=== PATIENT | female | born 1955 | race Caucasian/White ===

== ENCOUNTER → 2018-07-03 09:44 | Outpatient (CLI) | payer MEDICARE, OTHER, SELFPAY ==
--- NOTE | 2018-07-03 | DI.MG.S_ITS ---
BILATERAL DIGITAL SCREENING MAMMOGRAM 3D/2D WITH CAD: 07/03/2018 CLINICAL: Routine screening. Comparison is made to exams dated: 06/19/2017 mammogram, 06/18/2016 mammogram, 06/16/2015 mammogram, 06/14/2014 mammogram, and 08/03/2014 mammogram - [facility]. The tissue of both breasts is heterogeneously dense. This may lower the sensitivity of mammography. Current study was also evaluated with a Computer Aided Detection (CAD) system. There are benign post operative findings in the left breast. There is a mole marker on the right breast. There are mole markers on the left breast. No significant masses, calcifications, or other findings are seen in either breast. There has been no significant interval change. IMPRESSION: There is no mammographic evidence of malignancy. A 1 year screening mammogram is recommended. This exam was interpreted at Station ID: [id number]. NOTE: For mammograms, a report in lay terms will be sent to the patient. Approximately 15% of breast malignancies will not be visualized mammographically. In the management of a palpable breast mass, a negative mammogram must not discourage biopsy of a clinically suspicious lesion. Electronically Signed By: Marlon moreau/ange:07/03/2018 13:26:32 letter sent: Normal Exam ACR BI-RADS Category 2: Benign Finding(s) 3342F
== END ==
PROVIDERS: Family Provider Internal Medicine; PCP Internal Medicine; Visit Provider Internal Medicine
DX: Z12.31 Encounter for screening mammogram for malignant neoplasm of breast (principal); M85.852 Other specified disorders of bone density and structure, left thigh; Z78.0 Asymptomatic menopausal state
CPT/HCPCS: 77063; 77067; 77080

== ENCOUNTER → 2019-07-06 08:37 | Outpatient (CLI) | payer MEDICARE, OTHER, SELFPAY ==
--- NOTE | 2019-07-06 | DI.US.S_ITS ---
PROCEDURE: US PELVIC COMPLETE INDICATIONS: RIGHT UPPER AND LOWER QUADRANT PAIN TECHNIQUE: Real-time scanning was performed of the pelvic organs, with image documentation. Additional endovaginal scanning was necessary due to incomplete visualization of the adnexal and endometrial structures by transabdominal scanning. COMPARISON: None. FINDINGS: Transabdominal scanning: Limited scanning through the kidneys shows no hydronephrosis. No pathologic free abdominal or pelvic fluid. Endovaginal scanning: Uterus: The uterus measures 4.6 x 2.5 x 3.5 cm. The endometrium measures 13 mm in diameter and has an echogenic, cystic appearance. Ovaries: The ovaries are nonvisualized. IMPRESSION: Echogenic, thickened, cystic appearance of the endometrium which is abnormal in a postmenopausal patient. Endometrial biopsy recommended to exclude neoplasm. Dictated by: Zainab Fan M.D. on 07/06/2019 at 11:47 Approved by: Zainab Fan M.D. on 07/06/2019 at 11:49
--- NOTE | 2019-07-06 | DI.US.S_ITS ---
PROCEDURE: US ABDOMEN COMPLETE INDICATIONS: RIGHT UPPER AND LOWER QUADRANT PAIN TECHNIQUE: Real-time scanning was performed of the abdominal and retroperitoneal organs, with image documentation. COMPARISON: None. FINDINGS: Liver: Increased echogenicity suggests probable hepatic steatosis. Normal size. No masses. Gallbladder: Multiple mobile stones. No gallbladder wall thickening or pain on examination. No fluid around the gallbladder. Biliary ducts: Upper limits of normal extrahepatic duct, measuring 7 mm at the level of the common hepatic duct and 6 mm at the level of the common bile duct. Nondilated intrahepatic ducts. Pancreas: Visualized portions of the pancreas are sonographically normal. Spleen: Spleen is normal in size and homogeneous in echotexture. Kidneys: Kidneys are normal in size and echotexture. Right kidney measures 10.0 cm long; left kidney measures 10.7 cm long. No hydronephrosis or nephrolithiasis. No solid masses. Aorta: Visualized aorta is normal in caliber at less than 3 cm. Iliacs: Proximal common iliac arteries are normal in caliber at less than 2.5 cm. IVC: Intrahepatic inferior vena cava is patent. Miscellaneous: No free abdominal fluid. IMPRESSION: 1. Cholelithiasis. 2. Mildly prominent extrahepatic bile ducts. 3. Probable fatty change in the liver. Dictated by: Mazin Oconnell M.D. on 07/06/2019 at 10:51 Approved by: Mazin Oconnell M.D. on 07/06/2019 at 10:54
== END ==
PROVIDERS: Family Provider Internal Medicine; PCP Internal Medicine; Referring Provider Internal Medicine; Visit Provider Internal Medicine
DX: R10.11 Right upper quadrant pain (principal); R10.31 Right lower quadrant pain; K80.20 Calculus of gallbladder without cholecystitis without obstruction; K83.8 Other specified diseases of biliary tract; R93.89 Abnormal findings on diagnostic imaging of other specified body structures
CPT/HCPCS: 76700; 76830; 76856

== ENCOUNTER → 2019-11-03 10:30 | Outpatient (CLI) | payer MEDICARE, OTHER, SELFPAY ==
[2019-11-04 09:33] LABS: COVID19 Sendout Not Detected (Not Detect)
== END ==
PROVIDERS: Family Provider Internal Medicine; PCP Internal Medicine; Visit Provider Nurse Practitioner
DX: Z11.59 Encounter for screening for other viral diseases (principal)
CPT/HCPCS: 87635

== ENCOUNTER 2019-11-06 13:30 | Day surgery (SDC) | payer MEDICARE, OTHER, SELFPAY ==
--- NOTE | 2019-11-06 11:47 | P.HP_ITS ---
History of Present Illness History of Present Illness Date Patient Seen: 11/06/19 Chief complaint: SCREENING COLONOSCOPY Narrative: 64 year old female comes in today for consideration of a screening colonoscopy. Has had 4-5 lifetime colonoscopies, all normal. Last colonoscopy in 2013. Mother of colon cancer. There have been no lower GI symptoms suggesting disease such as change in bowel habits, bleeding, abdominal pain or anemia. Overall health issues have been stable, including no major cardiac events for at least 6 weeks. 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 Patient History Surgical History (Updated 07/02/17 @ 06:33 by DEISI Ordonez) History of bilateral salpingo-oophorectomy (BSO) Status post appendectomy Status post breast biopsy Status post tonsillectomy and adenoidectomy Family & Social History Family History (Updated 07/20/14 @ 00:00 by Conversion Provider) Father Heart disease Stroke Mother Cancer Diabetes mellitus Hypertension High cholesterol Melanoma Meds Home Medications and Allergies Home Medications Medication Instructions Recorded Confirmed Type multivitamin [Multiple Vitamins] 1 tab PO QDAY #0 06/13/16 11/06/19 History lovastatin 20 mg PO HS #90 tab 06/17/17 11/06/19 Rx omeprazole 20 mg PO DAILY 11/06/19 11/06/19 History propranolol 20 mg PO BID 11/06/19 11/06/19 History sumatriptan succinate 100 mg PO Q1H PRN 11/06/19 11/06/19 History Allergies Allergy/AdvReac Type Severity Reaction Status Date / Time No Known Drug Allergies Allergy Verified 11/06/19 14:16 Review of Systems Review of Systems ROS: Yes All systems reviewed with the patient and are negative except as otherwise documented Exam Narrative Exam Narrative: GENERAL: Alert and oriented, appearing stated age and in no acute distress. HEENT: Head normocephalic/atraumatic. Pupils equal, round, and reactive to light and accomodation. Extraocular muscles intact. Tympanic membranes clear. Nasal mucosa moist, septum midline. Oral mucosa moist, no lesions. Neck soft and supple, no lymphadenopathy. LUNGS: Clear to ausculation bilaterally, no wheezes, rhonchi or rales. CV: Normal S1 and S2 with regular rate and rhythm, no audible murmurs, rubs or gallops. ABDOMEN: Soft, non-tender, non-distended, no organomegaly. Positive bowel sounds. EXTREMITIES: No clubbing, cyanosis, or edema. NEURO: Cranial nerves II through XII grossly intact, no focal deficits. PSYCH: Alert and oriented x 3. SKIN: No concerning lesions. Assessment & Plan Assessment & Plan narrative: 1. Family history of colon cancer 2. Screening for colon cancer Plan for colonoscopy. The nature and character of the procedure as well as anticipated results were discussed. The possibility of not completing the procedure was also discussed. Possible complications including aspiration pneumonia, bleeding, perforation and reaction to medications either for sedation or preparation and missed lesions were discussed. Questions were answered and proceeding to the colonoscopy was elected. Informed consent signed. I sincerely appreciate the referral allowing me to participate in this patient's care. Please contact me with any questions or concerns.
--- NOTE | 2019-11-06 11:53 | PM.OP.ENDO ---
Operative Date/Time/Diagnoses Date of procedure: 11/06/19 Procedure Notes SCOAP/Timeout: 3:05 p.m. Procedure in detail: ENDOSCOPIST: Isidra Lawrence MD Sedation RN: Magalis Escobar RN Sedation start time: 3:06 p.m. Sedation end time: 3:27 p.m. PROCEDURE: Colonoscopy INDICATIONS: 1. Family history of colon cancer 2. Screening for colon cancer MEDICATION: Levsin 0.125 mg sublingual, incremental doses of Versed and fentanyl until appropriate level sedation achieved. ASA CLASS: 2 CECAL WITHDRAWAL TIME: 10 minutes COMPLICATIONS: None. EXTENT OF PROCEDURE: Cecum. QUALITY OF PREP: Good with portions of liquid stool. PROCEDURE: Prior to insertion of the colonoscope, a digital rectal examination was accomplished with circumferential palpation of the distal rectal mucosa without significant findings being noted. The high-definition pediatric colonoscope was passed into the rectum in the usual fashion and advanced over to the cecum without difficulty. The ileocecal valve, appendiceal stoma, and medial wall all could be inspected and no abnormalities were seen. ASCENDING COLON: As the colonoscope was withdrawn, care was taken to expose and inspect the haustral folds and no abnormalities were seen. HEPATIC FLEXURE: Normal, no polyps, diverticula or other abnormalities. TRANSVERSE COLON: Normal, no polyps, diverticula or other abnormalities. DESCENDING COLON: Normal, no polyps, diverticula or other abnormalities. SIGMOID COLON: Normal, no polyps, diverticula or other abnormalities. RECTUM: Normal. J maneuver was produced. There was no significant perianal disease. The J maneuver was broken. The remainder of the rectum was inspected and there was [] no external hemorrhoid disease. The scope was withdrawn. IMPRESSION: 1. Normal colonoscopy PLAN: 1. Secondary to family history, repeat colonoscopy in 5 years. The possibility of a missed lesion including a malignancy has been discussed with the patient previously. Potential alarm symptoms have been discussed and should be reported immediately.
[2019-11-06] MEDS: LACTATED RINGERS 1,000 ML 200 ML IV (14:14)
[2019-11-06] MEDS: HYOSCYAMINE 0.125 MG TABLET PO (14:14)
[2019-11-06 14:19] VITALS: BP 115/73; PULSE 84; RESP 16; TEMP 36.4; O2SAT 100; BMI 23.6
[2019-11-06] MEDS: fentaNYL 250 MCG/5 ML INJ IV ×2 (15:06→15:14)
[2019-11-06] MEDS: MIDAZOLAM 5 MG/5 ML VIAL IV (15:06)
--- NOTE | 2019-11-06 15:13 | SUR.OPER ---
BP monitor no functional at start of procedure
[2019-11-06 15:31] VITALS: BP 115/85; PULSE 76; RESP 16; TEMP 35.9; O2SAT 97
[2019-11-06 15:35] VITALS: BP 115/85; PULSE 83; RESP 16; TEMP 35.9; O2SAT 97
[2019-11-06 15:37] VITALS: BP 113/69; PULSE 74; RESP 16; O2SAT 98
[2019-11-06 15:42] VITALS: BP 107/62; PULSE 82; RESP 16; O2SAT 99
[2019-11-06 15:46] VITALS: BP 106/69; PULSE 69; RESP 18; TEMP 36.1; O2SAT 100
--- NOTE | 2019-11-06 16:02 | SUR.PHASEII ---
Pt is awake and alert. denies any complaints. pt is drinking cranberry juice.
--- NOTE | 2019-11-06 16:03 | SUR.PHASEII ---
Denies any complaints. states she is ready to go.
== END 2019-11-06 16:09 | disposition home or self-care (01) ==
PROVIDERS: Family Provider Internal Medicine; PCP Internal Medicine; Referring Provider Internal Medicine; Visit Provider Student in an Organized Health Care Education/Training Program
PROC: 0DJD8ZZ Inspection of Lower Intestinal Tract, Via Natural or Artificial Opening Endoscopic (ICD-10-PCS; CPT 45378; principal; 2019-11-06 15:15)
DX: Z12.11 Encounter for screening for malignant neoplasm of colon (principal); Z80.0 Family history of malignant neoplasm of digestive organs
CPT/HCPCS: G0105; J2250; J3010

== ENCOUNTER 2019-11-09 12:10 | Emergency (ER) | payer MEDICARE, OTHER, SELFPAY ==
--- NOTE | 2019-11-09 12:26 | ED_ITS ---
HPI - Extremity Injury (Lower) General Chief Complaint: Fall Stated Complaint: fell off short ladder, L santana pain Time Seen by Provider: 11/09/19 12:24 Source: patient and EMS Mode of arrival: EMS Limitations: no limitations History of Present Illness HPI Narrative: Patient is a 64-year-old female who presents after a fall from a short ladder. She said she was going up on the step stool when she fell injuring her left knee and leg. She has no other injury she has not had her head. Her shins seems to hurt the worst she is able to bend her knee, but it does hurt. She has no hip pain. Not on anticoagulation. Related Data Home Medications Medication Instructions Recorded Confirmed multivitamin [Multiple Vitamins] 1 tab PO QDAY #0 06/13/16 11/09/19 omeprazole 20 mg PO DAILY 11/06/19 11/09/19 sumatriptan succinate 100 mg PO Q1H PRN 11/06/19 11/09/19 aspirin 81 mg PO QPM 11/09/19 11/09/19 propranolol 10 mg PO DAILY 11/09/19 11/09/19 Previous Rx's Medication Instructions Recorded lovastatin 20 mg PO HS #90 tab 06/17/17 Allergies Allergy/AdvReac Type Severity Reaction Status Date / Time No Known Drug Allergies Allergy Verified 11/06/19 14:16 Review of Systems Review of Systems Narrative: GENERAL: Denies chills,fever HEENT: Denies throat pain RESPIRATORY: Denies dyspnea, cough, wheezing CARDIOVASCULAR: Denies chest pain, palpitations GASTROINTESTINAL: Denies nausea, vomiting MUSCULOSKELETAL: See HPI SKIN: No rash, no laceration, no pruritus NEUROLOGIC: Denies weakness, dizziness, headache, numbness 8 point review of systems is negative except for those stated above and HPI Patient History Surgical History (Updated 07/02/17 @ 06:33 by DEISI Ordonez) History of bilateral salpingo-oophorectomy (BSO) Status post appendectomy Status post breast biopsy Status post tonsillectomy and adenoidectomy Family History (Updated 07/20/14 @ 00:00 by Conversion Provider) Father Heart disease Stroke Mother Cancer Diabetes mellitus Hypertension High cholesterol Melanoma Social History household members: spouse Smoking Status: Never smoker alcohol intake: current Smoking Status: Never smoker alcohol intake frequency: 0-2 drinks per day Substance Use Type: does not use Exam Initial Vital Signs Initial Vital Signs: Vital Signs Pulse Rate 67 11/09/19 12:36 Respiratory Rate 16 11/09/19 12:36 Blood Pressure 116/62 11/09/19 12:36 Pulse Oximetry 100 11/09/19 12:36 GENERAL: Well-appearing, well-nourished and in no acute distress. CARDIOVASCULAR: peripheral pulses in tact, cap refill <2 sec RESPIRATORY: No respiratory distress, speaks in full sentences without difficulty EXTREMITIES: Normal range of motion, no clubbing or edema. Neurovascularly intact Left lower extremity swelling of left knee able to flex and extend contusion noted left tib-fib NEUROLOGICAL: Cranial nerves II through XII grossly intact. Normal gait and speech. SKIN: Warm, dry, no petechiae, no rashes or lesions. Procedures Orthopedic Splinting/Casting Injury #1: Side: left Lower Extremity Injury Location: knee Lower Extremity Immobilizer: posterior splint Post splinting neuro exam: intact Post splinting vascular exam: intact Placed by: Nursing Course Orders Ordered: ED Orders 11/09/19 12:24 XR knee LT 3V Stat XR tibia fibula LT 2V Stat 11/09/19 12:39 CT LE LT wo con Stat 11/09/19 13:24 COVID19 -ED/INPAT/OR/L&D Stat Discontinued Medications Morphine Sulfate (Morphine) 4 mg IV NOW ONE Stop: 11/09/19 16:24 Last Admin: 11/09/19 16:33 Dose: 4 mg Documented by: BARBRA Ondansetron HCl (Zofran) 4 mg IV NOW ONE Stop: 11/09/19 16:24 Last Admin: 11/09/19 16:33 Dose: 4 mg Documented by: BARBRA Consultations Consultation #1: Dr. Cherise leblanc has reviewed images. Fracture is complicated recommends transferring to [facility]. Request posterior splint. Time: 13:04 Consultation #2: [facility] Dr. Guevara, ED accepts Dr. Deon Leblanc accpets Time: 15:41 Vital Signs Vital signs: Vital Signs - 8 hr 11/09/19 12:36 11/09/19 13:15 11/09/19 13:30 Pulse Rate 67 69 76 Respiratory Rate 16 Blood Pressure 116/62 133/60 Pulse Oximetry 100 99 99 11/09/19 14:00 11/09/19 14:30 11/09/19 16:25 Pulse Rate 68 71 74 Respiratory Rate 16 Blood Pressure 120/59 L 132/65 148/65 H Pulse Oximetry 100 100 98 MDM - Extremity Injury (Lower) Lab Data Attestation: I reviewed the patient's lab results. Labs: Lab Results 11/09/19 Range/Units 13:24 COVID-19 PCR Negative (Negative) Imaging Data Extremity x-ray #1: Radiologist's Impression: PROCEDURE: XR KNEE LT 1TO2V INDICATIONS: fall pain TECHNIQUE: 2 views of the knee were acquired. COMPARISON: [facility], CR, XR TIBIA FIBULA LT 2V, 11/09/2019, 12:22. FINDINGS: Bones: There is a comminuted, moderately displaced fracture seen involving the lateral aspect of the tibial plateau, with intra-articular involvement. Soft tissues: There is an associated moderate prominent joint effusion, with a fat fluid level seen. IMPRESSION: Comminuted fracture of the lateral aspect of the tibial plateau, with intra- articular involvement and associated lipohemarthrosis. Dictated by: Steve Stephen M.D. on 11/09/2019 at 11:46 Extremity x-ray #2: Radiologist's Impression: PROCEDURE: XR TIBIA FIBULA RT 2V INDICATIONS: fall pain TECHNIQUE: 2 views of the tibia and fibula were acquired. COMPARISON: None. FINDINGS: Bones: The proximal aspects of the tibia and fibula are not included within the field of view of this study, yet they are included on the accompanying knee radiographs. No fractures can be seen involving the shafts and distal aspects of the tibia and fibula. Ankle degenerative changes are seen. Plantar and Achilles calcaneal spurs are seen. Soft tissues: No suspicious soft tissue calcifications or masses. IMPRESSION: No additional fractures are seen. Dictated by: Steve Stephen M.D. on 11/09/2019 at 11:50 Extremity x-ray #3: Radiologist's Impression: PROCEDURE: CT LE LT W CON INDICATIONS: fracture - fell off ladder TECHNIQUE: Noncontrast 1-1.5 mm axial sections acquired from the mid-patella to the proximal tibia, with coronal and sagittal reformats. In this patient, 3-D reformatted images were also performed. COMPARISON: [facility], CR, XR TIBIA FIBULA LT 2V, 11/09/2019, 12:22. [facility], CR, XR KNEE LT 1TO2V, 11/09/2019, 12:22. FINDINGS: Image quality: Excellent. Bones: There is a moderately displaced intra-articular fracture seen involving the lateral aspect of the tibial plateau. There is impaction of fracture fragments seen of approximately 1.3 cm. No associated fracture can be seen of the adjacent fibula. No distal femur fracture is seen. The patella appears intact. Age-appropriate bony degenerative changes are seen. Soft tissues: There is a moderate to large joint effusion seen, with a fat fluid level. Generalized soft tissue swelling is seen. IMPRESSION: There is a moderately displaced fracture of the lateral aspect of the tibial plateau. The impacted fracture fragments are displaced approximately 1.3 cm. There is an associated lipohemarthrosis. Dictated by: Steve Stephen M.D. on 11/09/2019 at 11:55 MDM Narrative Medical decision making narrative: Patient's pain has been controlled while in the emergency department she did not even require anything for splinting. Neurovascularly intact. She has remained NPO while in the ED. being transferred to [facility] for complex tibial to plateau fracture. Discharge Plan Departure Patient Disposition: [facility] Clinical Impression: Closed fracture of left tibial plateau Qualifiers: Encounter type: initial encounter Qualified Code(s): S82.142A - Displaced bico ndylar fracture of left tibia, initial encounter for closed fracture Prescriptions: No Action multivitamin [Multiple Vitamins] 1 EACH tablet 1 tab PO QDAY Qty: 0 RF: 0 lovastatin 20 MG tablet 20 mg PO HS Qty: 90 RF: 3 propranolol 10 mg tablet 10 mg PO DAILY RF: 0 aspirin 81 mg Tablet,Chewable 81 mg PO QPM RF: 0 sumatriptan succinate 100 mg tablet 100 mg PO Q1H PRN (Reason: Migraine Headache) RF: 0 omeprazole 20 mg capsule,delayed release(DR/EC) 20 mg PO DAILY RF: 0 Referrals: Adeola Thacker ARNP [Primary Care Provider] -
[2019-11-09 12:36] VITALS: BP 116/62; PULSE 67; RESP 16; O2SAT 100; BMI 23.6
--- NOTE | 2019-11-09 12:39 | DI.CT.S_ITS ---
PROCEDURE: CT LE LT W CON INDICATIONS: fracture - fell off ladder TECHNIQUE: Noncontrast 1-1.5 mm axial sections acquired from the mid-patella to the proximal tibia, with coronal and sagittal reformats. In this patient, 3-D reformatted images were also performed. COMPARISON: [facility], CR, XR TIBIA FIBULA LT 2V, 11/09/2019, 12:22. [facility], CR, XR KNEE LT 1TO2V, 11/09/2019, 12:22. FINDINGS: Image quality: Excellent. Bones: There is a moderately displaced intra-articular fracture seen involving the lateral aspect of the tibial plateau. There is impaction of fracture fragments seen of approximately 1.3 cm. No associated fracture can be seen of the adjacent fibula. No distal femur fracture is seen. The patella appears intact. Age-appropriate bony degenerative changes are seen. Soft tissues: There is a moderate to large joint effusion seen, with a fat fluid level. Generalized soft tissue swelling is seen. IMPRESSION: There is a moderately displaced fracture of the lateral aspect of the tibial plateau. The impacted fracture fragments are displaced approximately 1.3 cm. There is an associated lipohemarthrosis. Dictated by: Steve Stephen M.D. on 11/09/2019 at 11:55 Approved by: Steve Stephen M.D. on 11/09/2019 at 11:58
[2019-11-09 13:15] VITALS: PULSE 69; O2SAT 99
[2019-11-09 13:30] VITALS: BP 133/60; PULSE 76; O2SAT 99
[2019-11-09 13:54] LABS: COVID19 -Nasal RAPID Negative (Negative)
[2019-11-09 14:00] VITALS: BP 120/59; PULSE 68; O2SAT 100
[2019-11-09 14:30] VITALS: BP 132/65; PULSE 71; O2SAT 100
[2019-11-09 16:25] VITALS: BP 148/65; PULSE 74; RESP 16; O2SAT 98
[2019-11-09] MEDS: MORPHINE 4 MG/ML INJ IV (16:33)
[2019-11-09] MEDS: ONDANSETRON 4 MG/2 ML INJ IV (16:33)
== END 2019-11-09 17:07 | disposition short-term general hospital (02) ==
LOC: ED 13:10 → AC 14:54 → ED 16:32
PROVIDERS: Emergency Provider Emergency Medicine; Family Provider Internal Medicine; PCP Internal Medicine; Referring Provider Emergency Medicine
DX: S82.142A Displaced bicondylar fracture of left tibia, initial encounter for closed fracture (principal); W19.XXXA Unspecified fall, initial encounter
CPT/HCPCS: 73562; 73590; 73700; 87635; 96374; 96375; 99284; J2270; J2405

== ENCOUNTER → 2020-01-21 12:01 | Outpatient (CLI) | payer MEDICARE, OTHER, SELFPAY ==
[2020-01-21 13:02] LABS: COVID19 -Nasal RAPID Negative (Negative)
== END ==
PROVIDERS: Family Provider Internal Medicine; PCP Internal Medicine; Referring Provider Registered Nurse Diabetes Educator; Visit Provider Registered Nurse Diabetes Educator
DX: Z01.812 Encounter for preprocedural laboratory examination (principal); Z20.828 Contact with and (suspected) exposure to other viral communicable diseases
CPT/HCPCS: 87635

== ENCOUNTER → 2020-01-22 11:07 | Day surgery (SDC) | payer MEDICARE, OTHER, SELFPAY ==
[2020-01-19 08:32] VITALS: BMI 23.6
[2020-01-22] VITALS (9 sets, daily range): BP systolic 119–127; BP diastolic 50–71; PULSE 63–89; RESP 11–17; TEMP 36.2–36.6; O2SAT 96–100; BMI 23.6
--- NOTE | 2020-01-22 | PATH_ITS ---
[facility] Accession Number: [id number] . 01 Material submitted: . PART A: endometrium - RESECTION OF ENDOMETRIAL MASS PART B: endometrium - ENDOMETRIAL CURETTINGS . 01 Diagnosis: A. Endometrium, Hysteroscopic Resection of Mass: Mixed endometrial/endocervical polyp. Negative for atypical hyperplasia, dysplasia, and malignancy. . B. Endometrium, Curettage: Scant strips of atrophic squamous epithelium. Negative for dysplasia. Endometrial tissue not present in specimen. PENDING SALE TO [facility] 01/26/2020 1844 Local . 01 Electronically signed: . Catherine Silva MD, Pathologist NPI- [id number] . 01 Gross description: . Part A: RESECTION OF ENDOMETRIAL MASS: Received in formalin are 10 fragment(s) of ege, soft tissue measuring 2.0 x 1.0 x 0.3 cm to 0.4 x 0.3 x 0.1 cm submitted entirely in 2 cassette(s) Part B: ENDOMETRIAL CURETTINGS: Received in formalin are minute fragments of mucoid and hemorrhagic material measuring 0.2 x 0.2 x 0.1 cm in aggregate. Submitted in toto in 1 cassette. /QBJ 01/23/2020 0810 Local . 01 Pathologist provided ICD-10: N84.0 . 01 CPT . 715249, [id number] Performed at: 01 [facility] [address] [place] [address] [address] [facility], [place], [place] [id number] MD John Rod MD Phone: [phone]
[2020-01-22] MEDS: LACTATED RINGERS 1,000 ML 100 ML IV (11:39)
--- NOTE | 2020-01-22 12:01 | PM.PREOP ---
Pre-operative Note COVID-19 COVID-19 status: Negative Result date/Date tested (Pos, Neg/Pending): 01/21/20 Interval Note History & Physical reviewed/Exam performed by Physician: Yes Changes to H&P: No
--- NOTE | 2020-01-22 12:38 | SUR.OPER ---
Lithotomy on padded OR bed, head on pillow, arms secured on padded arm boards at <90 degrees abduction. Legs secured in padded yellow fins stirrups.
--- NOTE | 2020-01-22 13:27 | PM.OP.1 ---
Operative Date/Time/Diagnoses Date of procedure: 01/22/20 Time of procedure: 13:00 Pre-op diagnosis: Thickened endometrium on ultrasound Post-op diagnosis: same (Intracavitary fibroid with possible polyps) Procedure & Clinicians Procedure: Hysteroscopy with resection of intracavitary mass and endometrial curettage Same procedure as scheduled: Yes Indications: Thickened endometrium on ultrasound Surgeon: Ciarra Lea Click Yes if Unassisted: Yes Anesthesia Type: General Operative Notes Findings: Normal exam under anesthesia. Mass in the uterus likely a submucous fibroid with possible polyps otherwise normal uterus. Closure Type: not applicable Specimen(s): other (Intracavitary mass and endometrial curettings) Estimated Blood Loss (mL): 2 Blood products transfused: none Procedure in detail: The patient was brought to the operating room where she underwent general anesthesia. She was placed in low stirrups She was prepped and draped in usual sterile fashion with pulsatile stockings in place and functional, warming in place. A single-tooth tenaculum was placed on the anterior lip of the cervix and the uterus dilated to #8 Hegar dilator. The hysteroscope was placed into the uterus with a sorbitol solution running and under constant suction. The resecting loop set at 100 W of cutting was used to resect the fibroid down to the level of the endometrium. A endometrial curettage was performed. The fibroid and the endometrial curettage was sent to pathology. The patient went to recovery room in good condition counts of instruments and sponges were correct. The sorbitol solution I=O approximately 1000 mL. Complications: none Post-operative Condition: stable Disposition: same day surgery Plan for aftercare: Home when awake and stable. Treatment and follow-up based on results of pathology
== END | disposition home or self-care (01) ==
PROVIDERS: Family Provider Internal Medicine; PCP Internal Medicine; Referring Provider Specialist; Visit Provider Specialist
PROC: 0UDB8ZZ Extraction of Endometrium, Via Natural or Artificial Opening Endoscopic (ICD-10-PCS; CPT 58558; principal; 2020-01-22 12:15)
DX: N84.0 Polyp of corpus uteri (principal)
CPT/HCPCS: 58558; J1100; J1885; J2250; J2405; J2704; J3010

== ENCOUNTER → 2020-06-17 10:40 | Outpatient (CLI) | payer MEDICARE, OTHER, SELFPAY ==
--- NOTE | 2020-06-17 | DI.MG.S_ITS ---
BILATERAL DIGITAL SCREENING MAMMOGRAM 3D/2D WITH CAD: 06/17/2020 CLINICAL: Routine screening. Comparison is made to exams dated: 07/03/2018 mammogram, 06/19/2017 mammogram, 06/18/2016 mammogram, and 06/16/2015 mammogram - [facility]. The tissue of both breasts is heterogeneously dense. This may lower the sensitivity of mammography. Current study was also evaluated with a Computer Aided Detection (CAD) system. There are benign post operative findings in the left breast. No significant masses, calcifications, or other findings are seen in either breast. There has been no significant interval change. IMPRESSION: BENIGN There is no mammographic evidence of malignancy. A 1 year screening mammogram is recommended. This exam was interpreted at Station ID: [id number]. NOTE: For mammograms, a report in lay terms will be sent to the patient. Approximately 15% of breast malignancies will not be visualized mammographically. In the management of a palpable breast mass, a negative mammogram must not discourage biopsy of a clinically suspicious lesion. Electronically Signed By: Bryant lin/ange:06/17/2020 13:56:05 letter sent: Normal Exam ACR BI-RADS Category 2: Benign Finding(s) 3342F
== END ==
PROVIDERS: Family Provider Internal Medicine; PCP Internal Medicine; Referring Provider Internal Medicine; Visit Provider Internal Medicine
DX: Z12.31 Encounter for screening mammogram for malignant neoplasm of breast (principal)
CPT/HCPCS: 77063; 77067

== ENCOUNTER → 2020-07-07 14:01 | Outpatient (CLI) | payer MEDICARE, OTHER, SELFPAY | PROVIDERS: Family Provider Internal Medicine; PCP Internal Medicine; Referring Provider Internal Medicine; Visit Provider Internal Medicine | DX: M85.852 Other specified disorders of bone density and structure, left thigh (principal); Z78.0 Asymptomatic menopausal state | CPT/HCPCS: 77080 ==

== ENCOUNTER → 2021-06-19 09:57 | Outpatient (CLI) | payer MEDICARE, OTHER, SELFPAY ==
--- NOTE | 2021-06-19 09:59 | DI.MG.S_ITS ---
BILATERAL DIGITAL SCREENING MAMMOGRAM 3D/2D WITH CAD: 06/19/2021 CLINICAL: Routine screening. Comparison is made to exams dated: 06/17/2020 mammogram, 07/03/2018 mammogram, and 06/19/2017 mammogram - [facility]. The tissue of both breasts is heterogeneously dense. This may lower the sensitivity of mammography. Current study was also evaluated with a Computer Aided Detection (CAD) system. There are benign post operative findings in the left breast. No significant masses, calcifications, or other findings are seen in either breast. There has been no significant interval change. IMPRESSION: BENIGN There is no mammographic evidence of malignancy. A 1 year screening mammogram is recommended. This exam was interpreted at Station ID: [id number]. NOTE: For mammograms, a report in lay terms will be sent to the patient. Approximately 15% of breast malignancies will not be visualized mammographically. In the management of a palpable breast mass, a negative mammogram must not discourage biopsy of a clinically suspicious lesion. Electronically Signed By: Zainab santos/ange:06/19/2021 11:55:49 letter sent: Normal Exam ACR BI-RADS Category 2: Benign Finding(s) 3342F
== END ==
PROVIDERS: Family Provider Internal Medicine; PCP Internal Medicine; Referring Provider Internal Medicine; Visit Provider Internal Medicine
DX: Z12.31 Encounter for screening mammogram for malignant neoplasm of breast (principal)
CPT/HCPCS: 77063; 77067

== ENCOUNTER → 2022-06-20 11:07 | Outpatient (CLI) | payer MEDICARE, OTHER, SELFPAY ==
--- NOTE | 2022-06-20 11:10 | DI.MG.S_ITS ---
BILATERAL DIGITAL SCREENING MAMMOGRAM 3D/2D WITH CAD: 06/20/2022 CLINICAL: Routine screening. Comparison is made to exams dated: 06/19/2021 mammogram, 06/17/2020 mammogram, 07/03/2018 mammogram, and 06/19/2017 mammogram - [facility]. Both breasts are heterogeneously dense, which may obscure small masses (category c / 51-75% glandular tissue). Current study was also evaluated with a Computer Aided Detection (CAD) system. There are benign post operative findings in the left breast. No significant masses, calcifications, or other findings are seen in either breast. There has been no significant interval change. IMPRESSION: BENIGN There is no mammographic evidence of malignancy. A 1 year screening mammogram is recommended. Based on the Tyrer Cuzick model (a risk assessment model) the patient's lifetime risk is 8.6% and her 10 year risk is 4.8%. According to the ACR, ACS, and NCCN guidelines, an annual breast MRI exam along with mammogram is recommended if the patient's lifetime risk is 20% or greater. This exam was interpreted at Station ID: [id number]. NOTE: For mammograms, a report in lay terms will be sent to the patient. Approximately 15% of breast malignancies will not be visualized mammographically. In the management of a palpable breast mass, a negative mammogram must not discourage biopsy of a clinically suspicious lesion. Electronically Signed By: Bryant lin/ange:06/20/2022 16:32:53 letter sent: Normal Exam ACR BI-RADS Category 2: Benign Finding(s) 3342F
== END ==
PROVIDERS: Family Provider Internal Medicine; PCP Internal Medicine; Referring Provider Internal Medicine; Visit Provider Internal Medicine
DX: Z12.31 Encounter for screening mammogram for malignant neoplasm of breast (principal)
CPT/HCPCS: 77063; 77067

== ENCOUNTER → 2022-07-11 10:44 | Outpatient (CLI) | payer MEDICARE, OTHER, SELFPAY ==
--- NOTE | 2022-07-11 | DI.RAD.S_ITS ---
Bone Density Report Name: MEAGAN PEREZ Age: 67 Sex: Female Ethnicity: White Date of : 1955 Indication: osteopenia; Referring Provider: LAMONTE VASQUEZ Study: Bone densitometry was performed. Exam Date: July 11, 2022 Accession number: [id number] Bone Density: Region BMD T-score Z-score Classification AP Spine(L1-L4) 0.830 -2.0 0.1 Osteopenia Femoral Neck (Left) 0.571 -2.5 -0.8 Osteoporosis Total Hip (Left) 0.685 -2.1 -0.7 Osteopenia Femoral Neck (Right) 0.629 -2.0 -0.2 Osteopenia Total Hip (Right) 0.709 -1.9 -0.5 Osteopenia Total Hip Mean 0.697 -2.0 -0.6 Osteopenia World Health Organization criteria for BMD impression classify patients as: Normal (T-score at or above -1.0), Osteopenia (T-score between -1.0 and -2.5), or Osteoporosis (T-score at or below -2.5). 10-year Fracture Risk: FRAX not reported because: Some T-score for Spine Total or Hip Total or Femoral Neck at or below -2.5 Previous Exams: -- Region Exam Age BMD T-score BMD Change BMD Change Date g/cm2 vs Baseline vs Previous -- AP Spine (L1-L4) 07/11/2022 67 0.830 -2.0 -0.077 (-8.5%)# -0.077 (-8.5%)# 07/07/2020 65 0.906 -1.3 Total Hip(Left) 07/11/2022 67 0.685 -2.1 0.005 (0.8%)# 0.005 (0.8%)# 07/07/2020 65 0.679 -2.2 Total Hip(Right) 07/11/2022 67 0.709 -1.9 -0.013 (-1.8%)# -0.013 (-1.8%)# 07/07/2020 65 0.722 -1.8 -- *Denotes significance at 95% confidence level, LSC for AP Spine = 0.022 g/cm2, LSC for Total Hip = 0.027 g/cm2 # Denotes dissimilar scan types or analysis methods Impression: The patient has osteoporosis, based on the Left Femoral Neck T-score. No significant bone loss was observed. Discussion: INCREASED RISK OF FRACTURE. BONE DENSITY IS UNDESIRABLY LOW AT ONE OR MORE SKELETAL SITES, CONSISTENT WITH POSTMENOPAUSAL OSTEOPOROSIS. This patient's lowest T-score meets the World Health Organization's (WHO) criteria for osteoporosis at one or more sites (T-score -2.5 or below). In untreated patients, the risk of osteoporotic fracture increases approximately two-fold for each 1.0 SD decrease in T-score. Low bone density is not the only risk factor for fracture; also consider factors such as patient's age, frailty or poor health, risk of falling, risk of injury, previous osteoporotic fracture, family history of osteoporosis, cigarette smoking, low body weight, etc. Not everyone with low bone mineral density has osteoporosis; osteomalacia and other metabolic bone disorders should also be considered. Patients who have osteoporosis should be evaluated for specific diseases and conditions (secondary causes) that may cause or contribute to bone loss. The [place] [employer] (AACE) and National Osteoporosis Foundation (NOF) recommend pharmacologic intervention for all postmenopausal women whose T-score is in this range. The patient should follow a healthful lifestyle (good nutrition with adequate calcium and vitamin D, and appropriate weight-bearing exercise). Follow-Up: Consider a repeat BMD and Vertebral Fracture Assessment (VFA) exam in 2 years or sooner if medically necessary, to reassess this patient's status. Reported by: NICOL DAVIDSON MD on 07/11/2022 11:04:00 AM.
== END ==
PROVIDERS: Family Provider Internal Medicine; PCP Internal Medicine; Referring Provider Internal Medicine; Visit Provider Internal Medicine
DX: Z78.0 Asymptomatic menopausal state (principal); M81.0 Age-related osteoporosis without current pathological fracture
CPT/HCPCS: 77080

== ENCOUNTER → 2023-06-24 11:06 | Outpatient (CLI) | payer MEDICARE, OTHER, SELFPAY ==
--- NOTE | 2023-06-24 11:07 | DI.MG.S_ITS ---
BILATERAL DIGITAL SCREENING MAMMOGRAM 3D/2D WITH CAD: 06/24/2023 CLINICAL: Routine screening. Comparison is made to exams dated: 06/20/2022 mammogram, 06/19/2021 mammogram, 06/17/2020 mammogram, and 07/03/2018 mammogram - [facility]. Both breasts are heterogeneously dense, which may obscure small masses (category c / 51-75% glandular tissue). Current study was also evaluated with a Computer Aided Detection (CAD) system. There are benign post operative findings in the left breast. No significant masses, calcifications, or other findings are seen in either breast. There has been no significant interval change. IMPRESSION: BENIGN There is no mammographic evidence of malignancy. A 1 year screening mammogram is recommended. Based on the Tyrer Cuzick model (a risk assessment model) the patient's lifetime risk is 8.2% and her 10 year risk is 4.8%. According to the ACR, ACS, and NCCN guidelines, an annual breast MRI exam along with mammogram is recommended if the patient's lifetime risk is 20% or greater. This exam was interpreted at Station ID: [id number]. NOTE: For mammograms, a report in lay terms will be sent to the patient. Approximately 15% of breast malignancies will not be visualized mammographically. In the management of a palpable breast mass, a negative mammogram must not discourage biopsy of a clinically suspicious lesion. Electronically Signed By: Joy dockery/ange:06/24/2023 15:10:26 letter sent: Normal Exam ACR BI-RADS Category 2: Benign Finding(s) 3342F
== END ==
LOC: MAMMO 11:07
PROVIDERS: Family Provider Internal Medicine; PCP Internal Medicine; Referring Provider Internal Medicine; Visit Provider Internal Medicine
DX: Z12.31 Encounter for screening mammogram for malignant neoplasm of breast (principal); R92.333 Mammographic heterogeneous density, bilateral breasts
CPT/HCPCS: 77063; 77067

== ENCOUNTER → 2024-06-24 10:25 | Outpatient (CLI) | payer MEDICARE, SELFPAY ==
--- NOTE | 2024-06-24 10:26 | DI.MG.S_ITS ---
MM screening mammo BI: 06/24/2024. BI-RADS: 2 CLINICAL: 68-year old female for bilateral screening mammogram. Tyrer-Cuzick lifetime risk of 4.9%. No personal or first-degree family history of breast cancer. The patient had a prior left breast biopsy. PRIOR EXAMS 06/24/2023, 06/20/2022, 06/19/2021, 06/17/2020, 07/03/2018, 06/19/2017, 06/18/2016, 06/16/2015, 08/03/2014. MAMMOGRAPHY TECHNIQUE: 2D and 3D (tomosynthesis) digital mammographic views obtained, with additional images as needed for full coverage. Current study was also evaluated with a Computer Aided Detection (CAD) system. DENSITY C. The breasts are heterogeneously dense, which may obscure small masses. MAMMOGRAPHY FINDINGS Right: No suspicious mass, asymmetry, microcalcification, or other abnormality seen. Left: Benign-appearing post-surgical changes noted on the left. There are no suspicious masses, calcifications, or other findings in the breast. IMPRESSION: Right * No evidence of malignancy. Left * No evidence of malignancy with benign findings. RECOMMENDATIONS Bilateral * Annual screening mammography. OVERALL ASSESSMENT CATEGORY BI-RADS-2: Benign. The [employer] recommends annual screening mammography beginning at age 40 for women with average risk of breast cancer. ELECTRONICALLY SIGNED: Ericka Lewis M.D. on 06/26/2024 at 01:19:40 PM PT Interpreting Station ID: [id number]
== END ==
PROVIDERS: Family Provider Internal Medicine; PCP Family Medicine; Referring Provider Family Medicine; Visit Provider Family Medicine
DX: Z12.31 Encounter for screening mammogram for malignant neoplasm of breast (principal); R92.333 Mammographic heterogeneous density, bilateral breasts
CPT/HCPCS: 77063; 77067

== ENCOUNTER → 2024-06-25 12:03 | Outpatient (CLI) | payer MEDICARE, SELFPAY ==
[2024-06-26 13:11] LABS: Fecal Immunochemical Test Negative (Negative)
== END ==
PROVIDERS: Family Provider Internal Medicine; PCP Family Medicine; Referring Provider Family Medicine; Visit Provider Family Medicine
DX: Z12.11 Encounter for screening for malignant neoplasm of colon (principal)
CPT/HCPCS: 82274

== ENCOUNTER → 2024-07-09 08:13 | Outpatient (CLI) | payer MEDICARE, SELFPAY ==
[2024-07-09 09:28] LABS: Alanine Aminotransferase 19 IU/L (<35); Albumin 4.4 g/dL (3.5-5.0); Albumin Globulin Ratio 1.8 (1.0-2.8); Alkaline Phosphatase 94 U/L (38-126); Aspartate Aminotransferase 21 IU/L (14-36); BUN Creatinine Ratio 16.5 (6-22); Bilirubin Total 0.9 mg/dL (0.2-1.3); Blood Urea Nitrogen 14 mg/dL (7-17); Calcium 9.4 mg/dL (8.4-10.2); Carbon Dioxide 28 mmol/L (22-32); Chloride 106 mmol/L (98-107); Cholesterol 201 mg/dL (140-199); Estimated Glomerular Filt Rate > 60 mL/min (>60); Globulin 2.4 g/dL (1.7-4.1); Glucose 100 mg/dL (70-99); HDL Cholesterol 47 mg/dL (40-60); HEMOLYSIS < 15 (0-50); LDL Cholesterol Calculated 112 mg/dL (<100); Sodium 140 mmol/L (137-145); Total Protein 6.8 g/dL (6.3-8.2); Triglycerides 210 mg/dL (35-150)
== END ==
PROVIDERS: Family Provider Internal Medicine; PCP Family Medicine; Referring Provider Family Medicine; Visit Provider Family Medicine
DX: Z13.1 Encounter for screening for diabetes mellitus (principal); E78.5 Hyperlipidemia, unspecified
CPT/HCPCS: 36415; 80053; 80061; 83036

== ENCOUNTER → 2024-07-16 12:42 | Outpatient (CLI) | payer MEDICARE, SELFPAY ==
--- NOTE | 2024-07-16 12:43 | DI.RAD.S_ITS ---
PROCEDURE: XR DEXA AXIAL SKELETON INDICATIONS: pmhx of osteoporosis COMPARISON: [facility], , XR DEXA AXIAL SKELETON, 07/11/2022, 10:54. FINDINGS: Lumbar Spine: Bone mineral density 0.844 (previously 0.830) g/cm2, T score -1.8 (previously -2.0). Left Femoral Neck: Bone mineral density 0.565 (previously 0.571) g/cm2, T score -2.6 (previously -2.5). Left Hip: Bone mineral density 0.697 (previously 0.685) g/cm2, T score -2.0 (previously -2.1). Fracture Risk Calculation (when applicable): 10-year fracture risk of a major osteoporotic fracture 27 percent and of a hip fracture 8.5 percent. (T score greater or equal to -1.0 to: NORMAL) (T score from -1.1 to -2.4: OSTEOPENIA) (T score less than or equal to -2.5: OSTEOPOROSIS) IMPRESSION: Osteoporosis--- recommend repeat DEXA in 2 years or less for reassessment of response to treatment. Follow-up guidelines as follows: Osteoporosis: Consider a repeat DEXA and Vertebral Fracture Assessment (VFA) exam in 2 years or sooner if medically necessary, to reassess this patient's status. Osteopenia: Consider a repeat DEXA in 2-3 years to reassess this patient's status, or if there is a new clinical indication. Normal: Consider a repeat DEXA in 5 years or sooner, or if there is a new clinical indication. All treatment decisions require clinical judgment and consideration of individual patient factors, including patient preferences, comorbidities, previous drug use, risk factors not captured in the FRAX model (e.g., frailty, falls, vitamin D deficiency, increased bone turnover, interval significant decline in bone density ) and possible under- or over-estimation of fracture risk by FRAX. In addition, the NOF Guide recommends that FDA-approved medical therapies be considered in postmenopausal women and men age >= 50 years with a: * Hip or vertebral (clinical or morphometric) fracture * T-score of <=-2.5 at the spine or hip * Ten-year fracture probability by FRAX of >= 3% for hip fracture or >=20% for major osteoporotic fracture. Dictated by: Jason Navarro M.D. on 07/16/2024 at 18:42 Approved by: Jason Navarro M.D. on 07/16/2024 at 18:46
== END ==
LOC: RAD 12:43
PROVIDERS: Family Provider Internal Medicine; PCP Family Medicine; Referring Provider Family Medicine; Visit Provider Family Medicine
DX: M81.0 Age-related osteoporosis without current pathological fracture (principal)
CPT/HCPCS: 77080

== ENCOUNTER → 2024-12-29 08:04 | Outpatient (CLI) | payer MEDICARE, SELFPAY ==
[2024-12-29 09:03] LABS: Cholesterol 182 mg/dL (140-199); HDL Cholesterol 59 mg/dL (40-60); Triglycerides 165 mg/dL (35-150)
== END ==
PROVIDERS: Family Provider Internal Medicine; PCP Family Medicine; Referring Provider Family Medicine; Visit Provider Family Medicine
DX: E78.5 Hyperlipidemia, unspecified (principal)
CPT/HCPCS: 36415; 80061